=== PATIENT | female | born 1975 | race Caucasian/White ===

== ENCOUNTER 2018-03-25 13:00 | Outpatient (CLI) | payer MEDICAID | END 2018-03-25 13:30 | disposition home or self-care (01) | LOC: RT.N 13:00 | PROVIDERS: ATTEND Nurse Practitioner | DX: R07.9 Chest pain, unspecified (principal) | CPT/HCPCS: 93005 ==

== ENCOUNTER 2018-03-25 13:54 | Outpatient (CLI) | payer MEDICAID ==
--- NOTE | 2018-03-25 17:21 | XRAY Report ---
TWO VIEW CHEST: 03/25/2018 CLINICAL INDICATION: Chest pain. FINDINGS: Frontal and lateral views of the chest are compared to previous frontal view of 08/30/2015. The cardiac silhouette is within normal limits. The lungs are clear. No effusion or pneumothorax is present. IMPRESSION: NORMAL CHEST. TD: 03/25/2018 15:12
== END 2018-03-25 13:55 | disposition home or self-care (01) ==
LOC: DI.N 13:54
PROVIDERS: ATTEND Nurse Practitioner
DX: R07.9 Chest pain, unspecified (principal)
CPT/HCPCS: 71046; 93005

== ENCOUNTER 2021-01-03 09:44 | Outpatient (CLI) | payer MEDICAID ==
[2021-01-03 11:53] LABS: BASOPHILS % (AUTO) 0.4 %; EOSINOPHILS # (AUTO) 0.2 10^3/uL (0.0-0.7); EOSINOPHILS % (AUTO) 1.9 %; HGB - HEMOGLOBIN 15.3 g/dL (12.0-16.0); LYMPHOCYTES # (AUTO) 2.9 10^3/uL (1.5-3.5); LYMPHOCYTES % (AUTO) 29.6 %; MEAN CORPUSCULAR HEMOGLOBIN 34.7 pg (27.0-31.0); MEAN PLATELET VOLUME 11.8 fL (7.9-10.8); MONOCYTES # (AUTO) 0.5 10^3/uL (0.0-1.0); NEUTROPHILS # (AUTO) 6.1 10^3/uL (1.5-6.6); NEUTROPHILS % (AUTO) 62.6 %; PLT - PLATELET COUNT 197 10^3/uL (130-450); RED BLOOD COUNT 4.41 10^6/uL (4.20-5.40); RED CELL DISTRIBUTION WIDTH 12.5 % (12.0-15.0); WHITE BLOOD COUNT 9.8 x10^3/uL (4.8-10.8)
[2021-01-03 12:20] LABS: ALBUMIN 4.3 g/dL (3.2-5.5); ALBUMIN/GLOBULIN RATIO 1.3 (1.0-2.2); ALKALINE PHOSPHATASE 38 IU/L (42-121); ALT ALANINE AMINOTRANSFERASE 40 IU/L (10-60); AST ASPARTATE AMINOTRANSFERASE 29 IU/L (10-42); BILIRUBIN,TOTAL 0.6 mg/dL (0.2-1.0); BUN - BLOOD UREA NITROGEN 15 mg/dL (6-20); CARBON DIOXIDE - CO2 22 mmol/L (21-32); CHLORIDE 100 mmol/L (101-111); CHOLESTEROL 217 mg/dL; CREATININE 0.8 mg/dL (0.4-1.0); GLUCOSE 116 mg/dL (70-100); HDL CHOLESTEROL 43 mg/dL; LDL CHOLESTEROL,CALCULATED 128 mg/dL; MAGNESIUM 1.9 mg/dL (1.7-2.8); TOTAL PROTEIN 7.7 g/dL (6.7-8.2); VLDL CHOLESTEROL 46 mg/dL
== END 2021-01-03 09:45 | disposition home or self-care (01) ==
LOC: LAB.N 09:44
PROVIDERS: ATTEND Physician Assistant
DX: E03.9 Hypothyroidism, unspecified (principal); Z79.899 Other long term (current) drug therapy; R60.0 Localized edema; I10 Essential (primary) hypertension; F31.81 Bipolar II disorder
CPT/HCPCS: 36415; 80053; 80061; 80175; 83721; 83735; 84443; 85025

== ENCOUNTER 2021-03-09 17:50 | Outpatient (CLI) | payer MEDICAID | END 2021-03-09 17:51 | disposition critical access hospital (66) | LOC: EMS 17:50 | DX: R51.9 Headache, unspecified (principal); R11.2 Nausea with vomiting, unspecified; R42 Dizziness and giddiness; H93.19 Tinnitus, unspecified ear; R12 Heartburn | CPT/HCPCS: A0425; A0429; A0999 ==

== ENCOUNTER 2021-03-09 18:15 | Emergency (ER) | payer MEDICAID ==
--- OUTSIDE RECORDS SUMMARY | 2021-03-09 18:26 | EXTERNAL MEDICAL SUMMARY RPT | Continuity of Care Document ---
:1975 Demographics Phone Unavailable Preferred Language Unknown Marital Status Unknown Oriental Orthodox Affiliation Unknown Race Unknown Ethnic Group Unknown Author Organization [facility] Address [address] [place] [address] Phone Social History date description facility [phone]
--- NOTE | 2021-03-09 18:30 | ED Physician Documentation ---
History of Present Illness - Stated complaint Stated Complaint: HTN - Chief complaint Chief Complaint: Cardiac - History obtained from History obtained from: Patient, EMS - History of Present Illness Pain level now: 3 Improved by: nothing Worsened by: no exacerbating factors - Additonal information Additional information: BIBA. Patient says she has had high blood pressures for 2 months. She saw PMD who started her on blood pressure medications but she is concerned that her blood pressures have remained elevated; she says tonight it was 153/111 with pulse of 101. This evening, while ambulating at home, she had episode of lightheadedness, nausea and vomiting, "buzzing in my head" (per patient). She had generalized weakness and thus sat down (did not fall), did not lose consciousness. She also has generalized headaches. Also c/o mild shortness of breath. Also says she has "really bad GERD". Review of Systems Constitutional: reports: Reviewed and negative Eyes: denies: Loss of vision, Decreased vision, Photophobia Cardiac: reports: Chest pain / pressure, Pedal edema (mild bilateral, not new). denies: Palpitations Respiratory: reports: Dyspnea. denies: Cough GI: reports: Nausea, Vomiting. denies: Abdominal Pain, Constipation, Diarrhea : denies: Dysuria, Frequency Musculoskeletal: denies: Neck pain, Back pain Neurologic: reports: Generalized weakness, Headache. denies: Focal weakness, Numbness, Syncope PD PAST MEDICAL HISTORY - Past Medical History Past Medical History: Yes Cardiovascular: Hypertension GI: GERD Psych: Bipolar disorder - Past Surgical History Past Surgical History: No - Present Medications Home Medications: Ambulatory Orders Medication Instructions Recorded Confirmed lamoTRIgine [LaMICtal] 200 tab PO DAILY 08/30/15 03/09/21 Furosemide [Lasix] 20 mg PO DAILY 03/09/21 03/09/21 Levothyroxine [Synthroid] 50 mcg PO DAILY 03/09/21 03/09/21 Losartan [Cozaar] 50 mg PO DAILY 03/09/21 03/09/21 Ondansetron Odt [Zofran] 4 mg TL Q6H PRN #10 tablet 03/09/21 Vortioxetine Hydrobromide 40 mg PO DAILY 03/09/21 03/09/21 [Trintellix] - Allergies Allergies/Adverse Reactions: Allergies Allergy/AdvReac Type Severity Reaction Status Date / Time Sulfa (Sulfonamide Allergy Anaphylaxis Verified 03/09/21 18:22 Antibiotics) - Social History Does the pt smoke?: Yes Smoking Status: Current every day smoker Does the pt drink ETOH?: Yes Does the pt have substance abuse?: No - Immunizations Immunizations are current?: Yes - POLST Patient has POLST: No PD ED PE NORMAL - Vitals Vital signs reviewed: Yes - General General: Alert and oriented X 3, No acute distress, Well developed/nourished - HEENT HEENT: Moist mucous membranes - Neck Neck: Supple, no meningeal sign - Cardiac Cardiac: No murmur, No gallop, No rub - Respiratory Respiratory: No respiratory distress, Clear bilaterally - Abdomen Abdomen: Normal bowel sounds, Soft, Non tender, Non distended - Derm Derm: Normal color, Warm and dry - Extremities Extremities: No edema - Neuro Neuro: Alert and oriented X 3, 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, No motor deficit, No sensory deficit, Normal speech Eye Opening: Spontaneous Motor: Obeys Commands Verbal: Oriented GCS Score: 15 PD ED PE EXPANDED - Cardiac Cardiac: Tachy, Regular Rhythm Results - Vitals Vitals: Vital Signs - 24 hr 03/09/21 03/09/21 03/09/21 18:22 18:34 19:48 Temperature 36.9 C Heart Rate 101 H 92 85 Respiratory 18 12 20 Rate Blood Pressure 157/91 H 147/102 H 135/95 H O2 Saturation 100 98 96 03/09/21 03/09/21 21:18 22:26 Temperature 36.2 C L Heart Rate 77 84 Respiratory 13 20 Rate Blood Pressure 155/93 H 148/104 H O2 Saturation 99 99 Oxygen O2 Source Room air - EKG (time done) No standard instances Rate: Rate (enter#) (98) Rhythm: NSR Minetto: LAD Intervals: Normal MS QRS: Normal Ischemia: Normal ST segments, Q waves (III, aVF) Compare to prior EKG: Unchanged from prior EKG (03/15/18) - Labs Labs: Laboratory Tests 03/09/21 03/09/21 03/09/21 18:37 18:37 18:37 WBC 9.3 RBC 4.28 Hgb 15.1 Hct 43.5 MCV 101.6 H MCH 35.3 H MCHC 34.7 RDW 13.0 Plt Count 190 MPV 10.8 Neut # (Auto) 5.9 Lymph # (Auto) 2.6 Marion # (Auto) 0.4 Eos # (Auto) 0.2 Baso # (Auto) 0.1 Absolute Nucleated RBC 0.00 Nucleated RBC % 0.0 Sodium 140 Potassium 3.4 L Chloride 102 Carbon Dioxide 27 Anion Gap 11.0 BUN 9 Creatinine 0.7 Estimated GFR (MDRD) 89 Glucose 135 H Calcium 9.5 Total Bilirubin 0.4 AST 25 ALT 42 Alkaline Phosphatase 40 L Troponin I High Sens 3.0 Total Protein 7.5 Albumin 4.5 Globulin 3.0 Albumin/Globulin Ratio 1.5 Lipase 24 - Rads (name of study) chest xray Radiology: Prelim report reviewed, See rad report PD MEDICAL DECISION MAKING - ED course Complexity details: reviewed results, re-evaluated patient, considered differential, d/w patient ED course: no concerning results noted on CBC, ER abdominal panel, CXR. normal high sensitivity troponin. she is given toradol for her headache and reports adequate relief with this. Her blood pressures during ED stay were generally yielding mildly elevated systolic pressures with disproportionately elevated diastolic blood pressures. She is given a dose of her losartan 50mg, which she has been taking once QAM. She eventually had mild improvement in her blood pressures with diastolic blood pressures in 90s. We discussed that she needs to follow up with her primary care provider to discuss options for better blood pressure control but I advised her to increase her losartan to 50mg BID until and unless instructed otherwise Departure - Departure Disposition: 01 Home, Self Care Clinical Impression: Chest pain Hypertension Qualifiers: Hypertension type: unspecified Qualified Code(s): I10 - Essential (primary) hypertension Condition: Good Instructions: ED Chest Pain Atypical Unkn Cause Follow-Up: MELINDA VALDEZ PA-C [Primary Care Provider] - Prescriptions: Ondansetron Odt [Zofran] 4 mg TL Q6H PRN #10 tablet PRN Reason: Nausea / Vomiting Comments: I recommend that you increase your losartan to twice per day (50 mg by mouth twice per day). Follow up with your primary care provider for recheck of your blood pressure as well as reassessment of your symptoms that resulted in tonight's ER visit Discharge Date/Time: 03/09/21 22:27
[2021-03-09] MEDS ORDERED: ONDANSETRON 4 MG/2 ML VIAL IVP STA (18:41)
[2021-03-09 18:43] LABS: BASOPHILS # (AUTO) 0.1 10^3/uL (0.0-0.1); BASOPHILS % (AUTO) 0.6 %; EOSINOPHILS # (AUTO) 0.2 10^3/uL (0.0-0.7); EOSINOPHILS % (AUTO) 2.2 %; HCT - HEMATOCRIT 43.5 % (37.0-47.0); HGB - HEMOGLOBIN 15.1 g/dL (12.0-16.0); LYMPHOCYTES # (AUTO) 2.6 10^3/uL (1.5-3.5); LYMPHOCYTES % (AUTO) 28.5 %; MEAN CORPUSCULAR HEMOGLOBIN 35.3 pg (27.0-31.0); MEAN CORPUSCULAR HGB CONC 34.7 g/dL (32.0-36.0); MEAN CORPUSCULAR VOLUME 101.6 fL (81.0-99.0); MEAN PLATELET VOLUME 10.8 fL (7.9-10.8); MONOCYTES # (AUTO) 0.4 10^3/uL (0.0-1.0); MONOCYTES % (AUTO) 4.6 %; NEUTROPHILS # (AUTO) 5.9 10^3/uL (1.5-6.6); NEUTROPHILS % (AUTO) 63.7 %; PLT - PLATELET COUNT 190 10^3/uL (130-450); RED BLOOD COUNT 4.28 10^6/uL (4.20-5.40); WHITE BLOOD COUNT 9.3 x10^3/uL (4.8-10.8)
[2021-03-09 19:00] LABS: ALBUMIN 4.5 g/dL (3.2-5.5); ALBUMIN/GLOBULIN RATIO 1.5 (1.0-2.2); BILIRUBIN,TOTAL 0.4 mg/dL (0.2-1.0); CALCIUM 9.5 mg/dL (8.5-10.3); CREATININE 0.7 mg/dL (0.4-1.0); POTASSIUM 3.4 mmol/L (3.5-5.0); TOTAL PROTEIN 7.5 g/dL (6.7-8.2)
--- NOTE | 2021-03-09 19:11 | XRAY Report ---
PROCEDURE: Chest 1 View X-Ray INDICATIONS: Chest Pain TECHNIQUE: One view of the chest was acquired. COMPARISON: CT angiogram 11/11/2014; chest radiographs 03/25/2018 FINDINGS: Surgical changes and devices: None. Lungs and pleura: No pleural effusions or pneumothorax. Lungs are clear. Mediastinum: Mediastinal contours appear normal. Heart size is normal. Bones and chest wall: No suspicious bony lesions. Overlying soft tissues appear unremarkable. IMPRESSION: No acute cardiopulmonary process demonstrated radiographically. Reviewed by: Austin Hernandez MD on 03/09/2021 7:10 PM PDT Approved by: Austin Hernandez MD on 03/09/2021 7:10 PM PDT Station ID: [id number]
[2021-03-09] MEDS ORDERED: KETOROLAC 30 MG/ML VIAL IVP STA (21:08)
[2021-03-09] MEDS ORDERED: LOSARTAN 50 MG TABLET PO STA (21:08)
[2021-03-09 22:27] VITALS: BP 148/104
== END 2021-03-09 22:27 | disposition home or self-care (01) ==
LOC: EDUNIT# → ED 18:15 → SUPCPDRO 18:15 → ED 22:27
DX: I10 Essential (primary) hypertension (principal); R07.9 Chest pain, unspecified; F17.200 Nicotine dependence, unspecified, uncomplicated
CPT/HCPCS: 36415; 71045; 80053; 83690; 84484; 85025; 93005; 96374; 96375; 99284; A9270

== ENCOUNTER 2021-03-19 16:18 | Outpatient (CLI) | payer MEDICAID ==
--- NOTE | 2021-03-19 17:27 | Ultrasound Report ---
PROCEDURE: Pelvic w/Transvaginal INDICATIONS: IUD SURVEILLANCE TECHNIQUE: Real-time scanning was performed of the pelvic organs, with image documentation. Additional endovagi nal scanning was necessary due to incomplete visualization of the adnexal and endometrial structures by transabdominal scanning. COMPARISON: None. FINDINGS: No pathologic free abdominal or pelvic fluid. Uterus: Uterus is normal in size at 9.6 x 4.4 x 5.2 cm. The endometrium measures 3 mm in combined t hickness. Nabothian cysts are incidentally noted. A 1.2 cm nabothian cyst demonstrates internal debr is An IUD is seen at the expected location. Ovaries: The right ovary measures 2.7 x 2.8 x 2.8 cm and the left ovary measures 2.9 x 1.1 x 2.3 cm. The right ovary demonstrates a 2.5 cm simple cyst, which is considered to be within physiologic limi ts. No significant ovarian abnormalities are seen. There are less than 12 follicles seen on each jassi e. No adnexal masses are seen. IMPRESSION: IUD seen in place. Reviewed by: Bladimir Madrigal MD on 03/19/2021 4:25 PM RONNI Approved by: Bladimir Madrigal MD on 03/19/2021 4:25 PM RONNI Station ID: [id number]
== END 2021-03-19 16:19 | disposition home or self-care (01) ==
LOC: DI 16:18
PROVIDERS: ATTEND Nurse Practitioner Obstetrics & Gynecology
DX: Z30.431 Encounter for routine checking of intrauterine contraceptive device (principal)